=== PATIENT | female | born 1940 | race Caucasian/White ===

== ENCOUNTER 2020-11-07 16:08 | Emergency (ER) | payer MEDICARE, OTHER ==
[~2020-11-07] VITALS: Ht 165.1 cm; Wt 73.6 kg
[2020-11-07] MEDS ORDERED: LISINOPRIL2.5 MG PO (16:33)
--- NOTE | 2020-11-09 15:48 | EKG ---
[facility] [address] [facility] [place], [place] [address] Signed Normal sinus rhythm Inferior infarct , age undetermined Abnormal ECG No previous ECGs available Confirmed by BERTO CALDERON MD ([id number]) on 11/09/2020 3:48:40 PM Electronically Signed By: BERTO CALDERON MD 11/09/20 1548 PATIENT NAME: EUSEBIO MENDOZA Giovanna Electrocardiogram DATE OF : 44 PHYSICIAN: BERTO CALDERON MD REPORT #: [id number] REPORT IS CONFIDENTIAL AND NOT TO BE RELEASED WITHOUT AUTHORIZATION
== END 2020-11-07 17:44 | disposition home or self-care (01) ==
LOC: ED 16:08
DX: R79.89 Other specified abnormal findings of blood chemistry (principal); Z88.0 Allergy status to penicillin; Z79.899 Other long term (current) drug therapy
CPT/HCPCS: 80048; 93005; 93010; 99284-25